=== PATIENT | female | born 1980 | race Caucasian/White ===

== ENCOUNTER 2024-05-14 12:47 | Emergency (ER) | payer BC, OTHER ==
[~2024-05-14 12:47] MED LIST: Iopamidol 300 61% 100 ML VIAL FS ONE
[2024-05-14] MEDS ORDERED: Ondansetron ODT 4 MG TAB ONE (13:05)
[2024-05-14] MEDS ORDERED: Morphine 10 MG/ML VIAL ONE (13:05)
[2024-05-14] MEDS ORDERED: fentaNYL 50 mcg/mL 1 mL Vial ONE (14:27)
[2024-05-14 15:33] LABS: #Basophils 0.06 10x3/uL (0.0-0.2); #Eosinophils 0.07 10x3/uL (0.0-0.5); #Monocytes 0.68 10x3/uL (0.0-1.1); #Neutrophils 15.17 10x3/uL (1.5-8.4); %Basophils 0.3 % (0.0-2.0); %Eosinophils 0.4 % (0.0-6.0); %Lymphocytes 6.8 % (18.0-47.0); %Monocytes 3.9 % (0.0-10.0); %Neutrophils 88.2 % (40.0-75.0); Hemoglobin 12.6 g/dL (12.0-15.5); Mean Corpuscular HGB CONC 33.2 g/dL (32.0-36.0); Mean Corpuscular Hemoglobin 26.8 pg (27.0-33.0); Mean Corpuscular Volume 80.9 fL (81.6-98.3); Mean Platelet Volume 10.3 fL (7.4-10.4); Platelet Count 300 10x3/uL (150-450); RBC Distribution Width 13.4 % (11.5-14.5); White Blood Cell (WBC) Count 17.22 10x3/uL (3.5-10.5)
[2024-05-14 15:46] LABS: INR-International Normal Ratio 1.1; PTT 25.7 sec (22.0-33.0); Prothrombin Time 11.7 sec (9.5-12.1)
[2024-05-14 15:49] LABS: ALT (SGPT) 11 U/L (Less than 34); AST (SGOT) 16 U/L (11-34); Albumin 3.8 g/dL (3.1-4.5); Alkaline Phosphatase 55 U/L (40-110); Anion Gap 13 mmol/L (10-20); BUN (Urea Nitrogen) 12 mg/dL (7.0-18.7); Bilirubin, Total 0.5 mg/dL (0.3-1.2); Calc. Creatinine Clearance 0 mL/min (70-130); Calcium 9.2 mg/dL (7.8-10.44); Carbon Dioxide 18 mmol/L (22-29); Chloride 108 mmol/L (98-107); Estimated GFR 87; Globulin 3.2 g/dL (2.4-3.5); Glucose 84 mg/dL (70-105); Potassium 3.8 mmol/L (3.5-5.1); Sodium 135 mmol/L (136-145)
[2024-05-14 16:08] LABS: BHCG - Serum Negative (NEGATIVE); Pregs Control Background? CLEAR/WHITE (CLR/WHITE); Pregs Control Bar Appear? YES (CONTROL BAR)
[2024-05-14] MEDS ORDERED: Ketorolac Tromethamine 30 MG (1 mL) VIAL ONE (17:35)
== END 2024-05-14 18:51 ==
LOC: CSHERS 12:47
DX: S22.42XA Multiple fractures of ribs, left side, initial encounter for closed fracture (principal); S27.0XXA Traumatic pneumothorax, initial encounter; W01.10XA Fall on same level from slipping, tripping and stumbling with subsequent striking against unspecified object, initial encounter
CPT/HCPCS: 71260; 80053; 84703; 85025; 85610; 85730; 96372; 96374; 96375; J1885; J2270; J3010; Q0162; Q9967